=== PATIENT | male | born 1965 | race Hispanic/Latino ===

== ENCOUNTER 2024-12-13 05:57 | Observation (INO) | payer OTHER ==
[2024-12-08 08:58] VITALS: BP 147/89; PULSE 81; RESP 18; TEMP 97.4
[2024-12-08 09:04] LABS: BASOPHILS # (AUTO) 0.05 K/uL (0.00-0.20); BASOPHILS % (AUTO) 0.8 % (0.0-5.0); EOSINOPHILS % (AUTO) 1.6 % (0.0-8.0); IMMATURE GRANULOCYTE ABSOLUTE 0.02 K/uL (0-1); LYMPHOCYTES # (AUTO) 1.1 K/uL (1.0-4.8); MEAN CORPUSCULAR HEMOGLOBIN 30.7 pg (27.0-33.0); MEAN CORPUSCULAR HGB CONC 34.4 g/dL (32.0-36.0); MEAN CORPUSCULAR VOLUME 89.1 fL (79-99); MONOCYTES # (AUTO) 0.5 K/uL (0.1-1.0); MONOCYTES % (AUTO) 8.4 % (3.0-13.0); NEUTROPHILS # (AUTO) 4.3 K/uL (1.8-7.7); NEUTROPHILS % (AUTO) 70.9 % (40.0-77.0); PLATELET COUNT (AUTO) 286 K/uL (130-400); RED BLOOD CELL COUNT(AUTO) 5.61 MIL/uL (4.50-6.20); RED CELL DISTRIBUTION WIDTH 12.6 % (11.0-15.5); WHITE BLOOD COUNT (AUTO) 6.1 K/uL (4.8-10.8)
[2024-12-08 09:07] LABS: ALBUMIN 4.2 g/dL (3.5-5.0); CREATININE 0.7 mg/dL (0.5-1.3); POTASSIUM 4.5 mmol/L (3.5-5.1)
[2024-12-08 09:09] LABS: INR 0.98 (0.85-1.15); PROTHROMBIN TIME 10.4 SEC (9.6-11.6)
[2024-12-08 09:11] LABS: PARTIAL THROMBOPLASTIN TIME 28.2 SEC (26.3-35.5)
--- NOTE | 2024-12-08 09:20 | NUR ---
RE: IS INITIAL IS INITIAL TEACHING DONE BY RT SYBIL DURING PREOP
[~2024-12-13] VITALS: Ht 175.3 cm; Wt 88.0 kg
[2024-12-13] VITALS (22 sets, daily range): BP systolic 127–153; BP diastolic 70–109; PULSE 68–93; RESP 16–20; TEMP 97.5–98; O2SAT 98
[~2024-12-13 05:57] MED LIST: AMLO-257 PO; IBUP-2070 PO
[2024-12-13] MEDS ORDERED: MIDAZOLAM HCL 1 MG/ML 2ML VIAL ONE (06:47)
[2024-12-13] MEDS ORDERED: proPOFol 10 MG/ML 20ML VIAL IV ONE (06:47)
[2024-12-13] MEDS ORDERED: ondanSETRON 4MG INJ ONE (06:47)
[2024-12-13] MEDS ORDERED: ROPivacaine 0.5% 5MG/ML 30ML ONE (06:48)
[2024-12-13] MEDS ORDERED: FENTanyl CITRate PF 50 MCG/1 ML 2ML VIAL ONE ×3 (06:48→09:19)
[2024-12-13] MEDS ORDERED: rocuRONium bROMide 10MG/1ML 5ML VL ONE (06:48)
[2024-12-13] MEDS ORDERED: LIDOCAINE 2%-EPI 1:200,000 20 ML VIAL IJ ONE (06:48)
--- NOTE | 2024-12-13 07:22 | DS ---
Discharge Summary Hospital Course Summary: The patient was admitted to the hospital postoperatively on 12/13/2024 after undergoing left total knee arthroplasty. They did well with routine postoperative pain control. They worked well with physical therapy. They developed some acute blood loss anemia but remained asymptomatic. The hospital course was otherwise uncomplicated. They were subsequently able to be discharged on postoperative day [] once discharge arrangements were made with home health physical therapy. Internal Combustion Engine Assembler(s): None Procedure(s): Left total knee arthroplasty, 12/13/2024 Assessment/Plan: ASSESSMENT: Status post left total knee arthroplasty doing well Asymptomatic acute blood loss anemia PLAN: See discharge instructions Discharge Instructions: Begin working with home health physical therapy. Dressing may be removed 12/15/2024 and left open to air. Showers ok allowing soap and water to run over the wound. Pat dry. Do not submerge wound in tub/ pool. Do not apply ointments. Do not apply Betadine. Do not apply peroxide. Ice packs to decrease pain/swelling. Prescriptions have been sent to the pharmacy: *[place] 5/325mg 1-2 tab every 6 hours as needed for severe pain. (please call for refills) Cyclobenzaprine 5mg 1 tab every 8 hours as needed for muscle spasm pain. Gabapentin 100mg 1 tab every 8 hours (may discontinue if drowsy). Colace 100mg 1 tab orally twice a day as needed for constipation. Aspirin 325mg twice a day for 30 days to prevent blood clots. Call for a follow-up appointment in 2-3 weeks at [facility]. Home Medications: Reported Medications Ibuprofen (Ibuprofen) 600 Mg Tablet, 600 MG PO TID PRN for PAIN, TAB 12/08/24 Amlodipine Besylate (Amlodipine Besylate) 5 Mg Tablet, 5 MG PO HS, TAB 12/08/24 RAYMOND BRIGGS MD December 13, 2024 07:22
[2024-12-13] MEDS: ceFAZolin SODIUM 2 GM VIAL ONE (07:23)
[2024-12-13] MEDS: TRANEXAMIC ACID 1000MG/10ML ONE (07:27)
[2024-12-13] MEDS ORDERED: DiphenhydrAMINE HCL 50 MG/ML VIAL IVP PRN (07:30)
[2024-12-13] MEDS ORDERED: PoTASSium chloRIDE 20MEQ/100ML 100 ML IV PRN (07:30)
[2024-12-13] MEDS ORDERED: HYDROcodone/APAP 5/325 1 TAB TABLET PO PRN (07:30)
[2024-12-13] MEDS ORDERED: FERROUS FUMARATE 324 MG TABLET PO PRN (07:30)
[2024-12-13] MEDS ORDERED: CALCIUM CARB 500MG PO PRN (07:30)
[2024-12-13] MEDS ORDERED: ondanSETRON 4MG INJ IVP PRN (07:30)
[2024-12-13] MEDS ORDERED: PoTASSium chl 10% ELIXIR 20MEQ 20 MEQ/15 ML UDCUP PO PRN (07:30)
[2024-12-13] MEDS: LACTATED RINGERS 1000ML 1,000 ML IV ONE (07:34)
[2024-12-13] MEDS: ketOROlac 30MG VIAL (30MG/ML) ONE (08:30)
[2024-12-13] MEDS: ROPivacaine 0.5% 5MG/ML 30ML ONE (08:30)
--- NOTE | 2024-12-13 08:59 | OP ---
Operative Note: DATE OF PROCEDURE: 12/13/24 PREOPERATIVE DIAGNOSIS: Left knee osteoarthritis. POSTOPERATIVE DIAGNOSIS: Left knee osteoarthritis. PROCEDURE PERFORMED: Left knee total knee arthroplasty. SURGEON: Latrice Bolton MD PARAPROFESSIONAL AIDE TEACHER: Hitesh Huertas and Alma Everett. ANESTHESIA: General with adductor canal block. ANESTHESIA: APPLICATION SECURITY SPECIALIST Jerome Lundy. ESTIMATED BLOOD LOSS: 50cc. COMPLICATIONS: None. DRAINS: None. SPECIMENS REMOVED: resected bone. Not sent to pathology. IMPLANTS: [employer] II BCS size 7 Oxinium femur, size 6 tibial base plate, 35 x 7.5 mm patella, 9 mm polyethylene STATEMENT OF MEDICAL NECESSITY: The patient is a 51-year-old male who suffers from left knee osteoarthritis failing conservative management. After discussion of the risks, benefits, and alternatives with the patient, they voluntarily agreed to undergo the aforementioned procedure. DESCRIPTION OF PROCEDURE: Patient was properly identified in the preoperative holding area. Surgical site marking was verified and surgery consent reviewed. The patient was then taken to the operating room and placed in supine position on the OR table. After induction of general anesthesia, preoperative antibiotics were given, all bony prominences were well-padded, and a well padded tourniquet was applied but not inflated at this time. The left lower extremity was then prepped and draped in usual sterile fashion. Surgical time out was done verifying correct surgery, side, site, and location to be performed. We then began the procedure by exsanguinating the limb using an Esmarch and inflating the tourniquet to 350 mmHg. At this point, we made an anterior midline incision using a 10 blade, coming down sharply the level of the fascia. Skin flaps were elevated medially and laterally. We then obtained a clean 10 blade and performed a standard medial parapatellar arthrotomy. We excised the infrapatellar fat pad. We performed our soft tissue releases off of the tibia. We transected the ACL and removed the anterior portion of the medial & lateral meniscus. We then brought the knee into hyperflexion with the patella everted. We used our entry reamer to enter the femoral canal. We then placed our intramedullary cutting guide for our distal femoral cutting block. We then performed our distal femoral osteotomy ensuring appropriate rotation and removed the bony wafer. We then removed these pins and block and then used jig 2 to size the distal femur with the after mentioned size found. We then placed our 5-in-1 cutting block in 4 degrees of external rotation and took our 5 cuts ensuring to protect the patellar tendon and the collateral ligaments. We then removed the cutting block and our bony fragments using a curved osteotome. We then placed our PCL retractor subluxating the tibia anteriorly. Using an extra medullary tibial cutting guide, we hung the block for our proximal tibial cut taking 2 mm off the more diseased portion. Prior to pinning this block in place, we ensured appropriate varus/valgus alignment and posterior slope similar to the red cliff slope of the patient's knee. We then performed our proximal tibi al osteotomy and removed the bony wafer using Bovie electrocautery to release any remaining soft tissue attachments. We then used our tibial sizing paddle and checked once more for varus & valgus alignment and found this to be appropriate. At this point, we pinned our tibial paddle in place. We then removed the PCL retractor and subluxated the tibia posteriorly while we placed our femoral trial component. We then finished preparing the notch with the reamer and box chisel. The notch portion of the trial femoral component was then placed. A posterior stabilized polyethylene, size 9 trial was placed. The knee was then taken through range of motion and found to have stable full range of motion. We then placed a bump under the ankle and everted the patella to perform our freehand cut of the undersurface the patella. We then sized our patella and reamed to the lug holes for this. We placed our trial patellar component and begin to take the knee through range of motion. The patella had appropriate tracking. At this point we began removing our trial components and punched the tibial keel prior to removing our tibial trial component. Final components were opened and cement was mixed on the back table while we injected local cocktail in the posterior capsule. We then thoroughly irrigated out the bone and dried the bony surfaces. We cemented our tibial component in place ensuring to remove excess cement and placed our trial polyethylene. We then cemented our femoral component in place once again taking time to ensure excess cement was removed leg was brought into full extension to help squeeze the excess cement from around the femoral component. We then brought the knee back in a flexion to remove this portion of the cement at this point we placed the ankle in a bump thoroughly irrigated off the patellar component and cemented our patellar component in standard fashion again removing excess cement. While we waited for the cement to cure, we thoroughly irrigated out the wound with normal saline. Once our cement had cured, we took the knee through a range of motion and found full and stable range of motion. We then elected to use the size 9 polyethylene and removed our trial polyethylene. We impacted our final polyethylene component in place in standard fashion and took the knee through a range of motion check once more. This was satisfactory so we began to repair the arthrotomy using #1 Vicryl in interrupted [id number] fashion. Subcutaneous tissue was repaired using 2-0 Vicryl. Running subcuticular 3-0 Monocryl stitch with Dermabond placed over this for the skin. We then applied a foam barrier dressing and a pressure dressing consisting of 4 x 4's fluffs and an Mainor wrap. The tourniquet was then deflated. Patient was awakened from anesthesia, and they were taken to the recovery room in stable condition. LATRICE BOLTON MD December 13, 2024 08:59
[2024-12-13] MEDS: TRANEXAMIC ACID 1000MG/10ML IV ONE ×2 (09:00)
[2024-12-13] MEDS ORDERED: NEOSTIGMINE METHYLSULFATE 1MG/ML IV ONE (09:15)
[2024-12-13] MEDS ORDERED: GLYCOPYRROLATE 0.2 MG/ML 5 ML VIAL ONE (09:15)
[2024-12-13] MEDS: ketOROlac 15MG/ML VIAL (15MG/ML) ONE (09:45)
[2024-12-13] MEDS: ketOROlac 15MG/ML VIAL (15MG/ML) IV SCH (09:45)
--- NOTE | 2024-12-13 10:03 | HMCIMG ---
Exam Type: KNEE/PATELLA 1-2VWS LT Clinical Information: S/P LEFT TKA SURGERY Comparison: None Findings: Routine views of the knee are without evidence of fracture, dislocation, arthritic, or inflammatory change. There is status post knee replacement with adequate visualization and alignment of bony and hardware elements. No complications are seen. There are vascular calcifications. The joint space is well maintained and there is no effusion. IMPRESSION: Status post knee replacement.
[2024-12-13] MEDS: 0.9%NACL 1000ML 1,000 ML IV SCH (14:04)
[2024-12-13] MEDS: doCUSate SODIUM 100 MG CAP PO SCH (14:04)
[2024-12-13] MEDS: GABApentin 100 MG CAPSULE PO SCH (14:04)
[2024-12-13] MEDS: polyETHYLene GLYCol 3350 17 GM POWD.PACK PO SCH (14:04)
[2024-12-13] MEDS: HYDROcodone/APAP 5/325 1 TAB TABLET PO PRN (14:20)
[2024-12-13] MEDS: ceFAZolin SODIUM 2 GM VIAL IVP SCH ×2 (15:49→22:30)
--- NOTE | 2024-12-13 17:35 | NUR ---
ORTHO COORDINATOR: TEACHING REGARDING DVT AND PNEUMONIA PREVENTION, PAIN EXPECTATIONS AND PAIN MANAGEMENT. PATIENT IN BED. B SCD SLEEVES IN PLACE AND FUNCTIONING. INCENTIVE SPIROMETER PENDING. REVIEWED PAIN MANAGEMENT. PATIENT INSTRUCTED PAIN MEDICATIONS MUST BE REQUESTED. ENCOURAGED PATIENT TO SET AN ALARM EVERY FOUR HOURS AND PERFORM A SELF PAIN ASSESSMENT, ASSIGN A NUMERIC VALUE AND CALL FOR MEDICATION. PATIENT RETURN DEMONSTRATED FOOT FLEXION AND EXENSION EXERCISES. PATIENT VERBALIZED UNDERSTANDING TO ALL INSTRUCTIONS. RESPIRATORY THERAPY AT BEDSIDE. WILL CONTINUE TEACHING TOMORROW.
[2024-12-13] MEDS: amLODIPine 5 MG TAB PO SCH (22:10)
[2024-12-13] MEDS: HYDROcodone/acetaMINOPHEN 10/325 MG TAB PO PRN (22:15)
[2024-12-14] VITALS (7 sets, daily range): BP systolic 116–136; BP diastolic 74–89; PULSE 70–93; RESP 17–20; TEMP 97.6–98.1; O2SAT 97–98
[2024-12-14] MEDS: CYCLOBENZAPRINE HCL 10 MG TABLET PO PRN (02:34)
[2024-12-14] MEDS: traMADol HCL 50 MG TABLET PO PRN (02:35)
[2024-12-14 04:03] LABS: HEMATOCRIT 35.3 % (42-54); MEAN CORPUSCULAR HEMOGLOBIN 30.9 pg (27.0-33.0); MEAN CORPUSCULAR HGB CONC 34.6 g/dL (32.0-36.0); MEAN CORPUSCULAR VOLUME 89.4 fL (79-99); RED BLOOD CELL COUNT(AUTO) 3.95 MIL/uL (4.50-6.20); RED CELL DISTRIBUTION WIDTH 12.2 % (11.0-15.5)
[2024-12-14 04:41] LABS: CREATININE 0.7 mg/dL (0.5-1.3); POTASSIUM 3.5 mmol/L (3.5-5.1)
[2024-12-14] MEDS: PoTASSium chloRIDE 20MEQ ER 20 MEQ ERTAB PO PRN (07:09)
--- NOTE | 2024-12-14 08:02 | PN ---
Ortho postop day one. This morning the patient is awake alert and oriented. His is present in the room. Reports adequate pain control. He is out of bed seated on a chair alternating extension and flexion of the operative extremity with a footstool. Ice is present to operative site and the Mainor bandage is removed with the dressing intact. The gastrocnemius a soft and nontender negative Homans. SCD on bilaterally. Vital signs have remained stable and he is afebrile. Voiding on his own without difficulty passing gas as well. Laboratory results reviewed. Noted to have a drop in hemoglobin and hematocrit as expected after TKA. Patient is asymptomatic and we will address per protocol as necessary. Reinforced incentive spirometry and returned demonstration adequate. Ambulated with physical therapy approximately 100 ft in his pending further physical therapy this morning. The patient is anticipating going home with a home health. Assessment: Status post left total knee arthroplasty. Asymptomatic acute postoperative blood loss anemia Plan: Continue with Dr. Bolton's TKA protocol and discharge planning. Asymptomatic acute postoperative blood loss anemia addressed with the protocol as necessary Vitals/Labs Vital Signs Date Time Temp Pulse Resp B/P (MAP) Pulse Ox O2 Delivery O2 Flow Rate FiO2 12/14/24 04:00 98.1 70 19 116/82 97 Room Air 12/13/24 10:11 2.0 12/13/24 06:00 21 Laboratory Tests 12/14/24 03:16 Medications Current Medications Cefazolin Sodium 2 gm STK-MED ONCE .ROUTE Last administered on 12/13/24at 07:23; Start 12/13/24 at 06:12; Stop 12/13/24 at 06:12; Status DC Lactated Ringer's 1,000 ml @ As Directed STK-MED ONCE IV Last administered on 12/13/24at 07:34; Start 12/13/24 at 06:12; Stop 12/13/24 at 06:12; Status DC Ketorolac Tromethamine 30 mg STK-MED ONCE .ROUTE Last administered on 12/13/24at 08:30; Start 12/13/24 at 06:19; Stop 12/13/24 at 06:19; Status DC Ropivacaine 150 mg STK-MED ONCE .ROUTE Last administered on 12/13/24at 08:30; Start 12/13/24 at 06:19; Stop 12/13/24 at 06:20; Status DC Tranexamic Acid 1,000 mg STK-MED ONCE .ROUTE Last administered on 12/13/24at 07:27; Start 12/13/24 at 06:20; Stop 12/13/24 at 06:20; Status DC Ondansetron HCl 4 mg STK-MED ONCE .ROUTE; Start 12/13/24 at 06:47; Stop 12/13/24 at 06:47; Status DC Propofol 200 mg STK-MED ONCE IV; Start 12/13/24 at 06:47; Stop 12/13/24 at 06:47; Status DC Midazolam HCl 2 mg STK-MED ONCE .ROUTE; Start 12/13/24 at 06:47; Stop 12/13/24 at 06:47; Status DC Rocuronium [place] 50 mg STK-MED ONCE .ROUTE; Start 12/13/24 at 06:48; Stop 12/13/24 at 06:48; Status DC Fentanyl Citrate 100 mcg STK-MED ONCE .ROUTE; Start 12/13/24 at 06:48; Stop 12/13/24 at 06:48; Status DC Lidocaine/ Epinephrine 20 ml STK-MED ONCE IJ; Start 12/13/24 at 06:48; Stop 12/13/24 at 06:48; Status DC Ropivacaine 150 mg STK-MED ONCE .ROUTE; Start 12/13/24 at 06:48; Stop 12/13/24 at 06:48; Status DC Sodium Chloride 1,000 ml @ 100 mls/hr Q10H IV Last administered on 12/14/24at 02:39; Start 12/13/24 at 07:30; Stop 12/14/24 at 07:29; Status DC Polyethylene Glycol 17 gm DAILY PO Last administered on 12/13/24at 14:04; Start 12/13/24 at 09:00; Stop 01/12/25 at 08:59 Bisacodyl 10 mg DAILY PRN RC; Start 12/16/24 at 07:30; Stop 01/15/25 at 07:29 Ketorolac Tromethamine 15 mg Q6H PRN IV; Start 12/14/24 at 07:30; Stop 12/19/24 at 07:29 Ferrous Fumarate 324 mg DAILY PRN PO; Start 12/13/24 at 07:30; Stop 01/12/25 at 07:29 Ondansetron HCl 4 mg Q6H PRN IVP; Start 12/13/24 at 07:30; Stop 01/12/25 at 07:29 Calcium Carbonate 500 mg Q12H PRN PO; Start 12/13/24 at 07:30; Stop 01/12/25 at 07:29 Diphenhydramine HCl 25 mg Q6H PRN IVP; Start 12/13/24 at 07:30; Stop 01/12/25 at 07:29 Cefazolin Sodium 2 gm Q8H IVP Last administered on 12/13/24at 23:23; Start 12/13/24 at 12:30; Stop 12/13/24 at 20:31; Status DC Cyclobenzaprine HCl 5 mg Q8H PRN PO Last administered on 12/14/24at 02:34; Start 12/13/24 at 07:30; Stop 01/12/25 at 07:29 Gabapentin 100 mg TID PO Last administered on 12/13/24at 22:10; Start 12/13/24 at 09:00; Stop 01/12/25 at 08:59 Aspirin 325 mg DAILY PO; Start 12/14/24 at 09:00; Stop 01/13/25 at 08:59 Ketorolac Tromethamine 15 mg Q8H IV Last administered on 12/13/24at 23:27; Start 12/13/24 at 07:30; Stop 12/13/24 at 23:31; Status DC Docusate Sodium 100 mg BID PO Last administered on 12/13/24at 22:10; Start 12/13/24 at 09:00; Stop 01/12/25 at 08:59 Potassium Chloride 100 ml @ 100 mls/hr AD PRN IV; Start 12/13/24 at 07:30; Stop 01/12/25 at 07:29 Potassium Chloride 20 meq AD PRN PO; Start 12/13/24 at 07:30; Stop 01/12/25 at 07:29 Potassium Chloride 20 meq AD PRN PO Last administered on 12/14/24at 07:09; Start 12/13/24 at 07:30; Stop 01/12/25 at 07:29 Tramadol HCl 50 mg Q6H PRN PO Last administered on 12/14/24at 02:35; Start 12/13/24 at 07:30; Stop 12/18/24 at 07:29 Acetaminophen/ Hydrocodone Bitart Q4H PRN PO; Start 12/13/24 at 07:30; Stop 12/13/24 at 07:28; Status DC Amlodipine Besylate 5 mg HS PO Last administered on 12/13/24at 22:10; Start 12/13/24 at 21:00; Stop 01/12/25 at 20:59 Acetaminophen/ Hydrocodone Bitart 1 tab Q6H PRN PO Last administered on 12/13/24at 14:20; Start 12/13/24 at 07:30; Stop 12/18/24 at 07:29 Acetaminophen/ Hydrocodone Bitart 1 tab Q6H PRN PO Last administered on 12/14/24at 03:54; Start 12/13/24 at 07:30; Stop 12/20/24 at 07:29 Tranexamic Acid 1,000 mg STK-MED ONCE IV; Start 12/13/24 at 00:00; Stop 12/13/24 at 00:01; Status Cancel Fentanyl Citrate 100 mcg STK-MED ONCE .ROUTE; Start 12/13/24 at 08:26; Stop 12/13/24 at 08:27; Status DC Tranexamic Acid 1,000 mg STK-MED ONCE IV Last administered on 12/13/24at 09:00; Start 12/13/24 at 09:00; Stop 12/13/24 at 09:06; Status DC Glycopyrrolate 1 mg STK-MED ONCE .ROUTE; Start 12/13/24 at 09:15; Stop 12/13/24 at 09:16; Status DC Neostigmine Methylsulfate 10 mg STK-MED ONCE IV; Start 12/13/24 at 09:15; Stop 12/13/24 at 09:16; Status DC Fentanyl Citrate 100 mcg STK-MED ONCE .ROUTE; Start 12/13/24 at 09:19; Stop 12/13/24 at 09:19; Status DC Ketorolac Tromethamine 15 mg STK-MED ONCE .ROUTE; Start 12/13/24 at 09:43; Stop 12/13/24 at 09:44; Status DC Cefazolin Sodium 2 gm Q8H IVP; Start 12/13/24 at 22:30; Stop 12/13/24 at 22:31; Status DC MICHELL CORONADO NP December 14, 2024 08:02
[2024-12-14] MEDS: ASPIRIN 325MG EC TAB PO SCH (10:03)
--- NOTE | 2024-12-14 11:58 | NUR ---
[facility] CM MET WITH PT AND HIW THIS MORNING, INITIAL ASSESSMENT DONE. PATIENT IS INDEPENDENT PRIOR TO SURGERY, LIVES AT HOME WITH HIS AND 26 Y/O SON. PT VERBALIZED HE HAS A CANE, DENIES ANY OTHER EQUIPMENT/SERVICES. FEELS SAFE TO GO BACK HOME, STILL DRIVE, ABLE TO ASSIST WITH TRANSPORTATION AND NEEDS NECESSARY. DISCUSSED MD RECOMMENDATIONS FOR HOME W/HOME HEALTH FOR PT AND DME PT WILL NEED WALKER, PT AGREEABLE, VERBALIZED WOULD LIKE TO HAVE A CHAIR IN THE SHOWER AND ELEVATED CHAIR FOR TOILET HIS TOILET IS LOW, INFORMED PT THIS CM WILL REQUEST 3IN1 CHAIR W/[facility], 3IN1 CAN BE A SHOWER CHAIR, CAN BE ELEVATED SEAT FOR TOILET, AND BEDSIDE COMMODE AT NIGHT IF NEEDED, PT VERBALIZED UNDERSTANDING, CONSENT SIGNED [facility] FOR [facility] ASS[facility]ALTH AND DME. [facility] HOME W/HH AND DME ONCE APPROVED. CM TO CONTINUE TO FOLLOW UP. Addendum: 12/14/24 at 1201 by EUGENE UNDERWOOD LVN CM Amended: Links added.
--- NOTE | 2024-12-14 16:00 | NUR ---
ORTHO COORDINATOR: REINFORCED TEACHING. PATIENT IN BED, REPORTS THROBBING TO SURGICAL KNEE, PAIN MEDICATIONS ADMINISTERED BY PRIMARY NURSE. PATIENT RETURN DEMONSTRATED PROPER USE OF INCENTIVE SPIROMETER AND FOOT FLEXION EXERCISES. SURGICAL DRESSING DRY AND INTACT. ICE TO LEFT THIGH. PATIENT ABLE TO VERBALIZE FREQUENCY OF INCENTIVE SPIROMETER USE. REVIEWED PAIN MANAGEMENT. PATIENT STATES WAS SETTING ALARM FOR SELF PAIN ASSESSMENT. NOT AT BEDSIDE. ENCOURAGED PATIENT TO PERFORM CHECKS, RATIONALE PROVIDED. PATIENT ENCOURAGED TO SHOWER THIS EVENING, RATIONALE PROVIDED. PATIENT VERBALIZED UNDERSTANDING TO ALL INSTRUCTIONS. REPORT TO PRIMARY NURSE TO ENCOURAGE PATIENT TO SHOWER. PRIMARY NURSE VERBALIZED UNDERSTANDING. NO ADDITIONAL QUESTIONS/CONCERNS AT THIS TIME.
[2024-12-15] VITALS: BP 119/63; PULSE 92; RESP 18; TEMP 98.7
[2024-12-15 04:00] VITALS: BP 123/86; PULSE 96; RESP 20; TEMP 98.7
[2024-12-15] MEDS: ketOROlac 15MG/ML VIAL (15MG/ML) IV PRN (04:24)
[2024-12-15 08:00] VITALS: BP 141/86; PULSE 98; RESP 19; TEMP 98; O2SAT 97
[2024-12-15 12:00] VITALS: BP 132/79; PULSE 109; RESP 19; TEMP 98.3
--- NOTE | 2024-12-15 14:15 | NUR ---
ORTHO COORDINATOR: REINFORCED TEACHING. PATIENT IN BED. REPORTS SHOWERING YESTERDAY. PAIN IN BETTER CONTROL. DME AT BEDSIDE. PATIENT ENCOURAGED TO CONTINUE SELF PAIN ASSESSMENTS EVERY FOUR HOURS, TO CONTINUE PREMEDICATING PRIOR TO PHYSICAL THERAPY AND PERIODS OF HIGH ACTIVITY, CONTINUE USE OF INCENTIVE SPIROMETER AND FOOT FLEXION/EXTENSION EXERCISES. HOME HEALTH NEXT STEPS EXPLAINED. QUESTIONS ANSWERED. PAIN MANAGEMENT STRATEGY DISCUSSED IN DETAIL. NO ADDITIONAL QUESTIONS/CONCERNS AT THIS TIME.
[2024-12-15 16:00] VITALS: BP 129/81; PULSE 89; RESP 19; TEMP 97.4
[2024-12-15] MEDS ORDERED: NICOTINE 21 MG/ 24 HR PATCH TD SCH (16:00)
[2024-12-15] MEDS ORDERED: ASPI-891 PO (17:18)
[2024-12-15] MEDS ORDERED: CYCL-309 PO (17:18)
[2024-12-15] MEDS ORDERED: DOCU-116 PO (17:18)
[2024-12-15] MEDS ORDERED: GABA100C PO (17:18)
[2024-12-15] MEDS ORDERED: HYDR-4060 PO (17:18)
--- NOTE | 2024-12-15 18:35 | NUR ---
DC INSTRUCTION PROVIDED TO PATIENT , DRESSING REMOVED , NO SIGNS OF BLEEDING .. PATENT VERBALIZED UNDERSTANDING
[2024-12-16] MEDS ORDERED: BisaCODYL 10 MG SUPP.RECT RC PRN (07:30)
== END 2024-12-15 19:22 | disposition home health service (06) ==
LOC: DAH 05:57 → DAHIP 05:58 → DAH 05:58 → 4AH 10:20
PROVIDERS: ADMIT Student in an Organized Health Care Education/Training Program; ATTEND Student in an Organized Health Care Education/Training Program
DX: M17.12 Unilateral primary osteoarthritis, left knee (principal); G89.18 Other acute postprocedural pain; D62 Acute posthemorrhagic anemia; I10 Essential (primary) hypertension; N40.0 Benign prostatic hyperplasia without lower urinary tract symptoms; Z79.899 Other long term (current) drug therapy
CPT/HCPCS: 82040; 80048 ×2; 85025; 85610; 85730; 84134; 86140; 36415 ×2; 87641; 27447; 96376 ×2; 96365; 96366; 96375; 64447; 73560; 97161; 97116 ×5; 85027; 97530 ×3; G0378 ×54; A4663; J7120 ×2; J3010 ×3; J3490 ×5; J2250; J2704; J2405; J1885 ×6; J2710; J2795 ×2; J0690 ×3; C1713 ×2; C1776 ×2; A4649 ×2; A4930; A6255; A5120; A4215; A4223 ×2; A4213; A4222; A4221; A4216